=== PATIENT | male | born 2000 | race Caucasian/White ===

== ENCOUNTER 2024-08-13 16:43 | Emergency (ER) | payer OTHER ==
[~2024-08-13] VITALS: Ht 170.2 cm; Wt 69.8 kg
[~2024-08-13 16:43] MED LIST: CLARITIN10 M1 PO; LAMICTAL200 MG PO
== END 2024-08-13 17:56 | disposition home or self-care (01) ==
LOC: ER 16:43
DX: S09.90XA Unspecified injury of head, initial encounter (principal); Z87.820 Personal history of traumatic brain injury; Z88.0 Allergy status to penicillin; Z79.899 Other long term (current) drug therapy; W22.8XXA Striking against or struck by other objects, initial encounter
CPT/HCPCS: 70450; 99284-25

== ENCOUNTER 2024-10-02 07:43 | Emergency (ER) | payer OTHER ==
[~2024-10-02] VITALS: Ht 170.2 cm; Wt 61.2 kg
[2024-10-02] MEDS ORDERED: CYCL10 PO (08:11)
[2024-10-02] MEDS ORDERED: TOPI25 PO (08:12)
[2024-10-02] MEDS ORDERED: Acetaminophen 500 MG Tab PO ONE (08:20)
[2024-10-02] MEDS ORDERED: Ibuprofen 600 MG Tab PO ONE (08:20)
== END 2024-10-02 10:04 | disposition home or self-care (01) ==
LOC: ER 07:43
DX: S09.90XA Unspecified injury of head, initial encounter (principal); Z88.0 Allergy status to penicillin; Z79.899 Other long term (current) drug therapy; W22.8XXA Striking against or struck by other objects, initial encounter
CPT/HCPCS: 70450; 99283-25; A9270

== ENCOUNTER 2024-12-25 04:55 | Emergency (ER) | payer OTHER ==
[~2024-12-25] VITALS: Ht 167.6 cm; Wt 68.0 kg
[~2024-12-25 04:55] MED LIST changes: +CYCL10 PO; +TOPI25 PO
== END 2024-12-25 06:38 | disposition home or self-care (01) ==
LOC: ER 04:55
DX: R20.2 Paresthesia of skin (principal); Z88.0 Allergy status to penicillin; Z88.1 Allergy status to other antibiotic agents
CPT/HCPCS: 99283

== ENCOUNTER 2025-01-09 08:13 | Emergency (ER) | payer OTHER ==
[~2025-01-09] VITALS: Ht 170.2 cm; Wt 55.8 kg
[2025-01-09] MEDS ORDERED: LAMOTRIGINE200 MG PO (08:43)
[2025-01-09] MEDS ORDERED: CYCL10 PO (08:43)
[2025-01-09] MEDS ORDERED: PROAIR RESPICL90 MCG INH (08:44)
[2025-01-09] MEDS ORDERED: Dexamethasone Sod Phos 10 MG/ML 1ML VIAL IV ONE (09:00)
[2025-01-09] MEDS ORDERED: NS 1,000 ML IV SCH (09:00)
[2025-01-09] MEDS ORDERED: DiphenhydrAMINE HCl 50 MG/ML 1ML Vial IV ONE (09:00)
[2025-01-09] MEDS ORDERED: Ketorolac Tromethamine 15mg Vial IV ONE (09:00)
[2025-01-09] MEDS ORDERED: Metoclopramide HCl 5MG / ML 2ML Vial IV ONE (09:10)
== END 2025-01-09 10:56 | disposition home or self-care (01) ==
LOC: ER 08:13
DX: R51.9 Headache, unspecified (principal); Z88.0 Allergy status to penicillin; Z79.899 Other long term (current) drug therapy
CPT/HCPCS: 96374; 96375; 99283-25; J1100; J1200; J1885; J2765; J7030